=== PATIENT | male | born 1995 | race Caucasian/White ===

== ENCOUNTER 2021-01-06 10:57 | Emergency (ER) | payer OTHER ==
[~2021-01-06 10:57] MED LIST: FLOMAX0.4 MG PO; TORADOL 10 MG T10 MG PO; ZOFRAN ODT 4 MG4 MG PO
[2021-01-06 12:31] LABS: HEMOGLOBIN 14.4 gm/dl (14.0-17.5); RED BLOOD COUNT 4.6 M/UL (4.20-5.50); WHITE BLOOD COUNT 7.9 K/UL (4.5-11.0)
[2021-01-06 13:01] LABS: BUN/CREATININE RATIO 13 (0-10)
[2021-01-06] MEDS ORDERED: HYDROCODON-ACE1 EAC4 PO (15:24)
[2021-01-06] MEDS ORDERED: FLOMAX 0.4 MG0.4 MG PO (15:29)
[2021-01-06] MEDS ORDERED: ONDANSETRON ODT4 MG SL (15:29)
[2021-01-06] MEDS ORDERED: CEFUROXIME500 MG PO (15:29)
[2021-01-06] MEDS ORDERED: TORADOL 10 MG T10 MG PO (15:29)
== END 2021-01-06 15:53 | disposition home or self-care (01) ==
LOC: ER1 10:57
PROVIDERS: Physician Assistant
DX: N13.2 Hydronephrosis with renal and ureteral calculous obstruction (principal); N50.812 Left testicular pain
CPT/HCPCS: 76870; 80053; 81001; 85025; 87086; 96374; 99284; J1885; J7030

== ENCOUNTER → 2022-03-29 | Outpatient (CLI) | payer OTHER ==
[~2022-03-29] MED LIST changes: +CEFUROXIME500 MG PO; +FLOMAX 0.4 MG0.4 MG PO; +HYDROCODON-ACE1 EAC4 PO; +ONDANSETRON ODT4 MG SL
== END ==
LOC: CT 03-22 08:30 → KOH-I 03-22 08:30 → CT 10:08
DX: K91.1 Postgastric surgery syndromes (principal)
CPT/HCPCS: Q9967